=== PATIENT | male | born 1950 | race Caucasian/White ===

== ENCOUNTER 2017-01-13 11:20 | Day surgery (SDC) | payer OTHER ==
[~2017-01-13] VITALS: Ht 180.3 cm; Wt 107.0 kg
[~2017-01-13 11:20] MED LIST: 0.9% Sodium Chloride 1,000 ML IV SCH; DIAZ10TA PO; HYDR1TAB69 PO; METH750T3 PO; MULT-1018 PO; Sodium Chloride LOK Flush 10 mL Syringe IV PRN; fentaNYL-PF 50 mCg/mL 2 mL Inj IVPUSH PRN
[2017-01-13 12:58] VITALS: BP 120/79; PULSE 69; RESP 17; O2SAT 98
[2017-01-13 14:33] VITALS: BP 144/91; PULSE 61; RESP 16; O2SAT 98
[2017-01-13 14:43] VITALS: BP 131/79; PULSE 61; RESP 16; O2SAT 95
[2017-01-13 14:53] VITALS: BP 126/71; PULSE 73; RESP 16; O2SAT 98
[2017-01-13 15:03] VITALS: BP 109/65; PULSE 65; RESP 16; O2SAT 98
--- NOTE | 2017-01-13 15:09 | ENDO ---
[address] [address] ENDOSCOPY PROCEDURE PATIENT: RA LOBO : 1950 MR#: [id number] ADMIT: 01/13/2017 JOB ID: [id number] DATE: 01/13/2017 PROCEDURE: Colonoscopy. INDICATION: The patient with a history of adenomatous colon polyps. The patient's ASA classification is 2. Mallampati score is 2. MEDICATIONS: 1. Versed 5 mg. 2. Fentanyl 125 mcg. INSTRUMENT USED: PCF H 180 AL. PREPARATION QUALITY: Was fair. PROCEDURE DETAILS: After informed consent was obtained, the patient was brought into the GI suite, where he was placed on oxygen via nasal cannula and monitored with continuous pulse oximeter, telemetry and blood pressure monitoring. A time-out was performed. Then, he was placed in a left lateral decubitus position and medications were administered for sedation. Digital rectal examination with palpation of the prostate was performed, which was unremarkable. The colonoscope was then inserted into the rectum and advanced under direct visualization to the cecum, which was identified by the presence of the ileocecal valve and appendiceal orifice. Once the cecum was reached, the colonoscope was withdrawn back into the rectum as the mucosa and lumen were examined. In the rectum, retroflexion was performed. Following retroflexion, remaining air in the rectum was suctioned, and procedure was completed. FINDINGS: 1. In the ascending colon, there were two polyps. One measured approximately 4 mm and was removed with a cold snare. 2. A larger polyp in the ascending colon measured approximately 8 mm and was removed with a hot snare. The resulting mucosal defect had a minimal amount of bleeding and, therefore, one hemoclip was placed for bleeding cessation. 3. In the transverse colon, there was an approximately 4 mm sessile polyp that was removed with a cold snare. 4. Scattered diverticula were seen throughout the left side of the colon. IMPRESSION: 1. Two ascending colon polyps. 2. Transverse polyp. RECOMMENDATIONS: 1. Avoid nonsteroidal anti-inflammatory drugs and anticoagulants for 72 hours. 2. Repeat colonoscopy in three years. 3. Fiber rich diet. COMPLICATIONS: None. ESTIMATED BLOOD LOSS: Less than 5 mL.
[2017-01-13 15:13] VITALS: BP 146/86; PULSE 64; RESP 16; O2SAT 97
--- NOTE | 2017-01-15 13:43 | PATH ---
SURGICAL PATHOLOGY Attending Physician:Sanjana Cantrell CASE STATUS: Signed Out PATIENT NAME: RA LOBO PID: [id number] : 1950 DATE COLLECTED:01/13/2017 00:00 SPECIMEN: 1: Colon, Biopsy 2: Colon, Biopsy CLINICAL HISTORY: 1. TRANSVERSE POLYP 2. ASCENDING POLYP FINAL DIAGNOSIS: 1.TRANSVERSE COLON POLYP: TUBULAR ADENOMA INVOLVING SINGLE BIOPSY FRAGMENT. 2.ASCENDING COLON POLYP: SESSILE SERRATED ADENOMA INVOLVING SINGLE BIOPSY FRAGMENT. ICD10 CODE D12.3 GROSS DESCRIPTION: The specimen is received in two formalin filled containers labeled with the patient's name. 1). The specimen is sublabeled "transverse polyp" and consists of 2 portions of tissue which aggregate to 0.3 x 0.2 x 0.2 CM. The specimen is entirely submitted in cassette 1A. 2). The specimen is sublabeled "ascending polyps" and consists of 5 portions of tissue which aggregate to 0.7 0.6 x 0.4 CM. The specimen is entirely submitted in cassette 2A. 01/14/2017 [facility] MICRO DESCRIPTION: See diagnosis. ICD-9 CODES: CPT CODES: 1: 12237 2: 29133 Electronically Signed Out Mu Valadez MD [facility] Pathology [facility] [address], [place] [address] Technical component performed at [facility], [facility] [address], [place], [address]
== END 2017-01-13 23:59 | disposition home or self-care (01) ==
LOC: END 11:20
PROVIDERS: ATTEND Internal Medicine Gastroenterology
DX: Z12.11 Encounter for screening for malignant neoplasm of colon (principal); D12.2 Benign neoplasm of ascending colon; D12.3 Benign neoplasm of transverse colon; K21.9 Gastro-esophageal reflux disease without esophagitis; Z86.010 Personal history of colon polyps; E66.9 Obesity, unspecified; Z68.30 Body mass index [BMI] 30.0-30.9, adult; K57.30 Diverticulosis of large intestine without perforation or abscess without bleeding
CPT/HCPCS: 45385; 99153; G0500; J2250; J3010; J7030